=== PATIENT | female | born 1975 | race Two or more races ===

== ENCOUNTER 2023-09-24 05:30 | Day surgery (SDC) | payer OTHER ==
[2023-09-10 09:10] LABS: HEMATOCRIT 40.1 % (36.0-45.00); HEMOGLOBIN 13.7 g/dL (12.0-15.00); MEAN CORPUSCULAR HEMOGLOBIN 29.4 pg (27.00-32.0); MEAN CORPUSCULAR HGB CONC 34.2 g/dl (32.0-36.0); PLATELET COUNT 347 K/uL (150-450); RED BLOOD COUNT 4.66 M/uL (4.00-6.00); RED CELL DISTRIBUTION WIDTH 14.6 % (11.5-14.5)
[2023-09-10 09:30] LABS: PH,URINE 7.5 (5.0-8.0); URINE APPEARANCE Turbid; URINE BILIRRUBIN Negative (NEGATIVE); URINE BLOOD Negative; URINE COLOR Yellow; URINE GLUCOSE Negative (NEGATIVE); URINE LEUKOCYTE Negative; URINE NITRATE Negative; URINE PROTEIN Negative (NEGATIVE); URINE UROBILINOGEN 0.2 E.U./dl
[2023-09-10 09:34] LABS: URINE RBC 3.5 uL (0.0-20.8)
[2023-09-10 09:38] LABS: URINE BACTERIA 3.7 uL (0.0-1933)
[2023-09-10 09:40] LABS: BILIRUBIN TOTAL 0.48 mg/dL (0.3-1.2); CALCIUM 10.3 mg/dL (8.5-10.1); CREATININE SERUM 0.47 mg/dL (0.55-1.02); GFR 141.43; GLOBULINA 3.8 G/DL (2.4-3.5); POTASSIUM 4.1 mEq/L (3.5-5.1); TOTAL PROTEIN 7.8 gm/dL (6.4-8.2)
[2023-09-10 09:44] LABS: INR 1.04; PROTHROMBIN TIME 10.9 SECONDS (9.0-11.5)
[~2023-09-24] VITALS: Ht 167.6 cm; Wt 88.5 kg
[~2023-09-24 05:30] MED LIST: ANASTROZOLE1 MG PO
== END 2023-09-24 13:05 | disposition home or self-care (01) ==
LOC: CIR.AMB 05:30
PROVIDERS: ATTEND Obstetrics & Gynecology
DX: N72 Inflammatory disease of cervix uteri (principal); R87.613 High grade squamous intraepithelial lesion on cytologic smear of cervix (HGSIL); Z20.822 Contact with and (suspected) exposure to COVID-19

== ENCOUNTER 2025-06-26 08:24 | Outpatient (CLI) | payer OTHER | END 2025-06-26 08:31 | disposition home or self-care (01) | LOC: SONOGRAMA 08:24 | PROVIDERS: ATTEND Pathology Anatomic Pathology | DX: D34 Benign neoplasm of thyroid gland (principal); E07.89 Other specified disorders of thyroid; E04.1 Nontoxic single thyroid nodule ==